=== PATIENT | female | born 1975 | race Caucasian/White ===

== ENCOUNTER 2022-09-18 00:59 | Emergency (ER) | payer MEDICAID ==
[~2022-09-18] VITALS: Ht 157.5 cm; Wt 55.0 kg
[~2022-09-18 00:59] MED LIST: LEVO-65 MT
[2022-09-18 01:05] VITALS: BP 146/75
== END 2022-09-18 02:00 | disposition left against medical advice (07) ==
LOC: ER 00:59
DX: Z53.21 Procedure and treatment not carried out due to patient leaving prior to being seen by health care provider (principal)